=== PATIENT | female | born 1945 | race African-American/Black ===

== ENCOUNTER 2017-09-13 16:03 | Emergency (ER) | payer OTHER ==
[~2017-09-13] VITALS: Ht 160 cm; Wt 84.4 kg
[~2017-09-13 16:03] MED LIST: ADULT LOW DOSE81 M1 PO; Ascorbic Acid,Ester- PO; CARDIZEM CD240 MG PO; CARDIZEM30 MG PO; COUMADIN PO; COUMADIN,JANTOVE5 MG PO; DULCOLAX10 MG PR; DULCOLAX5 MG PO; Dilaudid PO; FEOSOL325 MG PO; FOLVITE1 M1 PO; FOLVITE1 MG PO; Feosol PO; HYDROCHLOROTH12.5 M3 PO; HYDRODIURIL,O12.5 M1 PO; IBUPROFEN600 MG PO; Keflex PO; LIDODERM 5% P1 PATCH; LIDODERM 5% P1 PATCH TP; LOSARTAN-HCTZ1 EAC3 PO; Milk Of Magnesia,MOM PO; NITROSTAT0.4 MG SL; OYST-CAL D, OS500 M1 PO; OxyCODONE PO; OxyCONTIN PO; Oyst-Cal D, Oscal W/ PO; SENOKOT S,PE1 TABLET PO; SIMVASTATIN20 MG PO; THERAGRAN1 TABLET PO; Tylenol Regular Stre PO; VICODIN 5-5001 EACH PO; ZESTORETIC,P1 TABLET PO; Zocor PO
[2017-09-13] MEDS ORDERED: AMLOD-VALSA-HC1 EAC1 PO (16:44)
[2017-09-13] MEDS ORDERED: MELOXICAM15 MG PO (16:47)
[2017-09-13 17:15] LABS: BASOPHIL COUNT 0.1 K/uL (0-0.1); EOSINOPHIL (%) 2.6 % (0-5); EOSINOPHIL COUNT 0.1 K/uL (0-0.3); HEMATOCRIT 37.5 % (36.0-46.0); INSTRUMENT ABS NEUTROPHIL CT 2.1 K/uL; LYMPHOCYTE COUNT 2.3 K/uL (1.0-2.8); MCH 28.2 PG (29.0-34.0); MCHC 32.5 G/DL (30.0-36.0); MCV 86.8 FL (83-99); MEAN PLAT.VOLUME 9.8 uM^3 (9.5-12.4); MONOCYTE (%) 7.5 % (3-12); MONOCYTE COUNT 0.4 K/uL (0-0.8); NEUTROPHIL (%) 42.2 % (45-76); NEUTROPHIL COUNT 2.1 K/uL (1.8-6.4); PLATELET COUNT 226 K/uL (156-360); RBC DIS.WIDTH-CV 13.2 % (11.8-14.6); RBC DIS.WIDTH-SD 41.7 % (39-53); RED BLOOD COUNT 4.32 M/uL (3.80-5.20); WHITE BLOOD COUNT 4.9 K/uL (4.1-10.2)
[2017-09-13 17:35] LABS: CHLORIDE 109 mEq/L (99-109)
[2017-09-13 17:36] LABS: POTASSIUM 4.1 mEq/L (3.7-5.4); SODIUM 140 mEq/L (136-147)
[2017-09-13 17:37] LABS: MAGNESIUM 2.3 mg/dL (1.3-2.7)
[2017-09-13 17:38] LABS: GLUCOSE 105 mg/dL (70-99)
[2017-09-13 17:39] LABS: ANION GAP 10 MEQ/L (2-14)
[2017-09-13 17:40] LABS: TOTAL BILIRUBIN 0.7 mg/dL (0.0-1.0)
[2017-09-13 17:41] LABS: ALKALINE PHOSPHATASE 66 IU/L (3-129)
[2017-09-13 17:42] LABS: GFR ESTIMATE (CALCULATED) > 59 mL/min/
[2017-09-13 17:43] LABS: UREA NITROGEN (BUN) 29 mg/dL (9-23)
[2017-09-13 17:45] LABS: CREATINE KINASE 899 IU/L (1-294); TOTAL CK 899 IU/L (1-294); TROP-I INTERPRETATION NEGATIVE; TROPONIN-I < 0.01 ng/mL (0.0-0.30)
[2017-09-13 17:50] LABS: CK-MB 9.2 ng/mL (0.0-4.9)
[2017-09-13 18:46] LABS: ADD MIUA? YES; BILIRUBIN NEGATIVE; BLOOD NEGATIVE; COLOR YELLOW ((YELLOW)); GLUCOSE (STRIP) NEGATIVE; KETONES NEGATIVE; LEUKOCYTES SMALL; NITRITE NEGATIVE; PROTEIN (STRIP) NEGATIVE; UROBILINOGEN 0.2 MG/DL (0.2-1.0)
[2017-09-13 19:11] LABS: BACTERIA RARE /HPF; EPITHELIAL CELLS RARE /HPF; MUCUS TRACE /LPF; RED BLOOD CELLS 0-5 /HPF (0-5); UCUL ADDED? NO; WHITE BLOOD CELLS 0-5 /HPF (0-5)
[2017-09-13 20:44] LABS: CREATINE KINASE 840 IU/L (1-294); TOTAL CK 840 IU/L (1-294); TROP-I INTERPRETATION NEGATIVE; TROPONIN-I < 0.01 ng/mL (0.0-0.30)
[2017-09-13 20:51] LABS: CK-MB 8.1 ng/mL (0.0-4.9)
[2017-09-13 21:21] VITALS: BP 152/79
== END 2017-09-13 21:27 | disposition home or self-care (01) ==
LOC: EME 16:03
PROVIDERS: Emergency Medicine
DX: S43.101A Unspecified dislocation of right acromioclavicular joint, initial encounter (principal); W19.XXXA Unspecified fall, initial encounter; R00.8 Other abnormalities of heart beat; R53.83 Other fatigue; R51 Headache; I49.3 Ventricular premature depolarization; I10 Essential (primary) hypertension; Z79.82 Long term (current) use of aspirin
CPT/HCPCS: 71010; 73030; 80053; 81003; 82550; 82550 91; 82553; 83735; 83880; 84484; 85025; 93005; 99281; 99285